=== PATIENT | female | born 1935 | race Caucasian/White ===

== ENCOUNTER 2021-01-13 13:27 | Outpatient (CLI) | payer MEDICARE | END 2021-01-13 13:28 | disposition home or self-care (01) | LOC: CSHCT 13:27 | PROVIDERS: ATTEND Specialist | DX: R06.02 Shortness of breath (principal); I31.3 Pericardial effusion (noninflammatory); J90 Pleural effusion, not elsewhere classified; R18.8 Other ascites | CPT/HCPCS: 71260; 74177; 82565 ==